=== PATIENT | male | born 1935 | race Two or more races ===

== ENCOUNTER 2023-04-24 16:56 | Emergency (ER) | payer OTHER ==
[~2023-04-24] VITALS: Ht 175.3 cm; Wt 72.6 kg
[2023-04-24] MEDS ORDERED: LEVOTHYROXINE25 MCG (17:17)
[2023-04-24] MEDS ORDERED: CRESTOR5 MG (17:17)
[2023-04-24] MEDS ORDERED: 0.9 % SODIUM CHLORIDE 1,000 ML IV SCH (17:30)
[2023-04-24 19:12] LABS: ALBUMIN 3.8 gm/dL (3.4-5.0); BILIRUBIN TOTAL 5.39 mg/dL (0.3-1.2); BILIRUBIN,CONJUGATED 0.28 mg/dL (0.0-0.2); BILIRUBIN,UNCONJUGATED 5.11 mg/dL (0.0-0.6); CALCIUM 8.4 mg/dL (8.5-10.1); CREATININE SERUM 0.9 mg/dL (0.70-1.30); GFR 79.45; GLOBULINA 2.7 G/DL (2.4-3.5); POTASSIUM 3.91 mEq/L (3.5-5.1); TOTAL PROTEIN 6.5 gm/dL (6.4-8.2)
[2023-04-24 20:01] LABS: HEMOGLOBIN 10.9 g/dL (13-16.00); MEAN CELL VOLUME 123.8 fL (80.0-100.00); PLATELET COUNT 221 K/uL (150-450); RED BLOOD COUNT 1.43 M/uL (4.00-6.00); RED CELL DISTRIBUTION WIDTH 13.6 % (11.5-14.5)
[2023-04-24 20:07] LABS: MEAN CORPUSCULAR HEMOGLOBIN 76.2 pg (27.00-32.0); MEAN CORPUSCULAR HGB CONC 61.6 g/dl (32.0-36.0)
[2023-04-24 20:11] LABS: HEMATOCRIT 17.7 % (39.0-48.0)
[2023-04-24 20:18] LABS: PH,URINE 6.5 (5.0-8.0); URINE APPEARANCE Clear; URINE BILIRRUBIN Negative (NEGATIVE); URINE BLOOD Trace; URINE COLOR Yellow; URINE GLUCOSE Negative (NEGATIVE); URINE LEUKOCYTE Negative; URINE NITRATE Negative; URINE PROTEIN Negative (NEGATIVE)
[2023-04-24 20:22] LABS: URINE RBC 6.1 uL (0.0-20.8)
[2023-04-24 20:26] LABS: URINE BACTERIA 1.2 uL (0.0-1933); URINE WBC 0.4 uL (0.0-23.2)
== END 2023-04-24 20:55 | disposition home or self-care (01) ==
LOC: ER 16:56
PROVIDERS: General Practice
DX: E80.6 Other disorders of bilirubin metabolism (principal); E03.9 Hypothyroidism, unspecified
CPT/HCPCS: 36415; 96365; 96366; 99282; J7030